=== PATIENT | male | born 1950 | race Caucasian/White ===

== ENCOUNTER → 2020-01-13 14:55 | Outpatient (CLI) | payer MEDICARE, OTHER, SELFPAY | PROVIDERS: Visit Provider Specialist | DX: N40.1 Benign prostatic hyperplasia with lower urinary tract symptoms (principal); N13.8 Other obstructive and reflux uropathy; N39.0 Urinary tract infection, site not specified; Z85.51 Personal history of malignant neoplasm of bladder; Z87.440 Personal history of urinary (tract) infections | CPT/HCPCS: 52000; 81002; 87086; 99213 ==

== ENCOUNTER → 2020-08-29 14:13 | Outpatient (CLI) | payer MEDICARE, OTHER, SELFPAY | PROVIDERS: Visit Provider Specialist | DX: N39.0 Urinary tract infection, site not specified (principal); N40.1 Benign prostatic hyperplasia with lower urinary tract symptoms; N35.916 Unspecified urethral stricture, male, overlapping sites; N13.8 Other obstructive and reflux uropathy; Z85.51 Personal history of malignant neoplasm of bladder; Z87.440 Personal history of urinary (tract) infections | CPT/HCPCS: 81002; 87077; 87086; 87186; 99214 ==

== ENCOUNTER → 2020-09-27 16:21 | Outpatient (CLI) | payer MEDICARE, OTHER, SELFPAY | PROVIDERS: Visit Provider Specialist | DX: N39.0 Urinary tract infection, site not specified (principal); N40.1 Benign prostatic hyperplasia with lower urinary tract symptoms; N13.8 Other obstructive and reflux uropathy; N35.916 Unspecified urethral stricture, male, overlapping sites; Z85.51 Personal history of malignant neoplasm of bladder; Z87.440 Personal history of urinary (tract) infections | CPT/HCPCS: 51798; 52000; 81002; 87086; 99215 ==